=== PATIENT | male | born 1955 | race Caucasian/White ===

== ENCOUNTER 2016-07-13 13:12 | Inpatient (IN) | payer OTHER ==
[~2016-07-13] VITALS: Ht 162.6 cm; Wt 77.0 kg
[2016-07-13] MEDS ORDERED: IBUPROFEN 600 MG TAB PO ONE (15:30)
--- NOTE | 2016-07-13 16:12 | RADRPT ---
PROCEDURE: US DVT. CLINICAL INDICATION: Left lower extremity pain. TECHNIQUE: Multiple longitudinal and transverse images of the left lower extremity veins were obta ined with oshea scale and color Doppler imaging. 2D grayscale measurements with compression, color D oppler flow, and augmentation was performed. The calf veins were interrogated as well. COMPARISON: No prior studies are available for comparison. FINDINGS: The left common femoral, superficial femoral and popliteal veins are normally compressible throughou t. Color flow demonstrates normal filling of the vessel. Normal waveforms are visualized and there is normal response to augmentation. IMPRESSION: 1. No evidence of a deep vein thrombosis involving the left lower extremity. RPTAT: [facility] Physician Lina Date Time Electronically viewed and signed by Physician Lina on 07/13/2016 16:12 /
--- NOTE | 2016-07-13 16:37 | ERA ---
ER Documentation Chief Complaint Date/Time DATE: 07/13/16 TIME: 16:31 Chief Complaint on tx for left foot diabetic, no open wounds, slight swelling, no redness, HPI 61-year-old male with history of diabetes mellitus type 2 presents the ED, referred by Dr. Casanova, for evaluation of for a six-month history of worsening left foot pain and swelling. In December 2015 patient developed bruising his left foot followed by a cyst which was drained by podiatry. Since then he has had ongoing pain and swelling. MRI performed on 05/24/2016 very extensive osteomyelitis of the foot including extensive osteomyelitis of the first metatarsal and first proximal phalanx with associated bone fragmentation, septic arthritis and complex fluid decompressing into the adjacent soft tissues. Osteomyelitis of the second metatarsal head and second proximal phalanx with superimposed subchondral fracture of the second tarsal head. Osteomyelitis of the third proximal phalanx. Mild nonspecific marrow edema within the third and fourth metatarsal heads could reflect stress response or early osteomyelitis. Pain is exacerbated by weightbearing, no relieving factors. Otherwise asymptomatic. Denies chest pain, palpitations, shortness of breath, abdominal pain or nausea vomiting. No fevers or chills. ROS All systems reviewed and are negative except as per history of present illness. Medications Home Meds Reported Medications Metformin Hcl* (Metformin Hcl*) 1,000 Mg Tablet, 1000 MG PO WITH BREAKFAST DINNE , #60 TAB 07/13/16 Allergies Allergies: Coded Allergies: aspirin (Verified Allergy, Unknown, 07/13/16) PMhx/Soc Reviewed in chart. As per HPI Hx Neurological Disorder: No Hx Respiratory Disorders: No Hx Cardiac Disorders: No Hx Psychiatric Problems: No Hx Miscellaneous Medical Probl: Yes (DAIBETES ) Hx Alcohol Use: Yes Hx Substance Use: No Hx Tobacco Use: No Smoking Status: Never smoker FmHx Reviewed in chart. As per HPI. Not relevant to presenting up Physical Exam Vitals Vital Signs Date Time Temp Pulse Resp B/P Pulse Ox O2 Delivery O2 Flow Rate FiO2 07/13/16 13:19 97.9 92 18 123/82 99 Physical Exam Const: Alert, moderate distress due to pain Head: Atraumatic Eyes: Normal Conjunctiva ENT: Normal External Ears, Nose and Mouth. Neck: Full range of motion. Nontender. No lymphadenopathy. Resp: Clear to auscultation bilaterally Cardio: Regular rate and rhythm, no murmurs Abd: Soft, non tender, non distended. Normal bowel sounds Skin: No petechiae or rashes Back: No midline or flank tenderness Ext: Left lower extremity: Pretibial ulcerations. Left foot: Extensive swelling and tenderness but no subcutaneous crepitus. Neur: Awake and alert. No focal deficit observed. Psych: Normal Mood and Affect Result Diagram: 07/13/16 1705 07/13/16 1705 Results 24 hrs Current Medications Medications (Trade) Dose Ordered Sig/Joelle Route PRN Reason Start Time Stop Time Status Last Admin Dose Admin Ibuprofen (Motrin) 600 mg ONCE ONCE PO 07/13/16 15:30 07/13/16 15:31 DC 07/13/16 17:03 Procedures/MDM DOCUMENTS REVIEWED: ED nurse, no prior records MEDICAL DECISION MAKIN-year-old male with history of diabetes mellitus type 2 presents the ED, referred by Dr. Casanova, for evaluation of for a six- month history of worsening left foot pain and swelling. Patient with MRI proven osteomyelitis of the foot. Blood cultures 2 were ordered and initial dose of vancomycin and ertapenem ordered as per Dr. Casanova. Will require admission for intravenous antibiotics, infectious disease and podiatry consults. Counseled patient and family regarding diagnosis, diagnostic results and plan for admission. CALLS/CONSULTS: Time 16:00, Dr. Casanova, Recommends admission to med/surg. CALLS/CONSULTS: Time 16:35, Dr. Lowe, Recommends admission to med/surg. PATIENT CARE TRANSITIONED: Time: 16:40, Dr. Mercedes. Departure Diagnosis: Primary Impression: Foot pain Qualified Code: M79.672 - Left foot pain Additional Impressions: Osteomyelitis of left foot Qualified Code: M86.9 - Osteomyelitis of left foot, unspecified type Diabetes mellitus type 2 in nonobese Condition: Serious MARIELLA MOONEY MD Jul 13, 2016 16:37 Procedures/MDM DOCUMENTS REVIEWED: ED nurse, no prior records MEDICAL DECISION MAKIN-year-old male with history of diabetes mellitus type 2 presents the ED, referred by Dr. Casanova, for evaluation of for a six- month history of worsening left foot pain and swelling. Patient with MRI proven osteomyelitis of the foot. Blood cultures 2 were ordered and initial dose of vancomycin and ertapenem ordered as per Dr. Casanova. Will require admission for intravenous antibiotics, infectious disease and podiatry consults. Counseled patient and family regarding diagnosis, diagnostic results and plan for admission. CALLS/CONSULTS: Time 16:00, Dr. Casanova, Recommends admission to med/surg. CALLS/CONSULTS: Time 16:35, Dr. Lowe, Recommends admission to med/surg. PATIENT CARE TRANSITIONED: Time: 16:40, Dr. Mercedes. Departure Diagnosis: Primary Impression: Foot pain Qualified Code: M79.672 - Left foot pain Additional Impressions: Osteomyelitis of left foot Qualified Code: M86.9 - Osteomyelitis of left foot, unspecified type Diabetes mellitus type 2 in nonobese Condition: Serious MARIELLA MOONEY MD Jul 13, 2016 16:37
[2016-07-13] MEDS ORDERED: ONDANSETRON 4 MG INJ IV PRN (17:00)
[2016-07-13] MEDS ORDERED: VANCOMYCIN IV PER PHARMACY XX SCH (17:00)
[2016-07-13] MEDS ORDERED: MEROPENEM 1 GM/100 ML (PMX) 100 ML IVPB SCH (17:00)
[2016-07-13] MEDS ORDERED: ACETAMINOPHEN 325 MG TAB PO PRN ×2 (17:00→23:30)
[2016-07-13] MEDS ORDERED: MEROPENEM 1 GM/100 ML (PMX) 100 ML IVPB STA (17:09)
--- NOTE | 2016-07-13 17:29 | CONS ---
DATE OF ADMISSION: 07/13/2016 DATE OF CONSULTATION: 07/13/2016 TYPE OF CONSULTATION: Infectious Disease. REASON FOR CONSULTATION: Antibiotic management. HISTORY OF PRESENT ILLNESS: Valerie Godfrey is a pleasant unfortunate 61-year-old male who w as seen in my office on 07/12/2016 for osteomyelitis of his left foot. He was referred by Dr. Rustam Linares, car designer. PROBLEMS INCLUDE: 1. Adult-onset diabetes mellitus. 2. Osteomyelitis. The patient had removal of a cyst from his left foot in December 2015. while in [place]. He presents now with headache with a history of left foot pain since 01/02/2016. He began to have swelling of his left foot along with bruising of the foot with pain on the sole of the foot . An MRI of 05/14/2016 showed extensive osteomyelitis of the left foot involving the 1st metatarsal and first proximal phalanx with associated fragmentation and septic arthritis and complex fluid com pressing into the adjacent soft tissue. He had osteomyelitis of the second and third toes as well. He may have perineal and flexor tenosynovitis. PAST MEDICAL HISTORY: Operations none. SOCIAL HISTORY: He is , has no children. He does not smoke. He does not drink. He was pascual rn in [place] and moved here in 1984 to [place], no recent travel except to [place]. He does not work. ALLERGIES: HE HAS NO ALLERGIES. REVIEW OF SYSTEMS: Noncontributory. PHYSICAL EXAMINATION: GENERAL: The patient is a well-developed, well-nourished male, alert, responsive, oriented x3, speaking mostly Wol[place]. SKIN: Without generalized rash. HEENT: Within normal limits. NECK: Supple. LYMPH NODES: None palpable. CHEST: Decreased breath sounds at the bases. HEART: Without murmur or gallop. ABDOMEN: Soft, nontender, without organosplenomegaly or masses. EXTREMITIES: Left foot is swollen and tender. He has bruises on both of his anterior tibial areas. RECTAL AND GENITAL: Deferred. NEUROLOGIC: Decreased sensation in distal extremities. IMPRESSION AND PLAN: The patient was referred to the emergency room for total evaluation. He needs a podiatric evaluation. He may need drainage and debridement of his left foot as well as a PICC li ne placement with antibiotics with vancomycin and ertapenem. I have discussed the case with Dr. Rashaad frausto who wants the patient referred to the [facility] and I spoke to Dr. Otto Matos who was alberto lerner care of the patient in the ER. Dictated By: MIGUEL GÓMEZ MD, JD/MEGAN Conf#: [id number] DID#: [id number]
[2016-07-13] MEDS ORDERED: ERTAPENEM SODIUM 1 GM in SOD CHLORIDE 0.9% 100 ML IVPB ONE (17:30)
[2016-07-13] MEDS ORDERED: VANCOMYCIN 1.5 GM in SOD CHLORIDE 0.9% 250 ML IVPB ONE (17:30)
[2016-07-13] MEDS ORDERED: METF1000 PO (17:36)
--- NOTE | 2016-07-13 17:40 | RADRPT ---
PROCEDURE: XR Foot. CLINICAL INDICATION: left foot pain, swollen, r/o osteomyelitis TECHNIQUE: AP, lateral and oblique views of the left foot was obtained. The images were reviewed on a PACS workstation. COMPARISON: None. FINDINGS: There is erosion of the head of the second metatarsal as well as deformity of the base of the second proximal phalanx including osteophytes. There is also erosion of the head of the first metatarsal with hypertrophic deformity of the shaft of the first metatarsal. Deformity of the base of the firs t proximal phalanx is also noted. There is normal osseous mineralization. There are small inferior and posterior calcaneal spurs as w ell as dystrophic calcifications measuring together up to 2.5 cm projecting over the expected locati on of the plantar fascia. RPTAT: AA IMPRESSION: Erosive changes at the first and second metatarsal phalangeal joints are concerning for osteomyeliti s. Tiny inferior and posterior calcaneal spurs as well as calcifications likely in the proximal plantar fascia. Correlation for plantar fasciitis is recommended. Physician Gavino Date Time Electronically viewed and signed by Physician Gavino on 07/13/2016 17:40 RA/
[2016-07-13 17:44] LABS: ADD SCAN DIFF NO
[2016-07-13 17:45] LABS: BASOPHILS % 0.5 % (0.0-2.0); EOSINOPHILS # 0.4 10^3/ul (0.0-0.5); EOSINOPHILS % 6.6 % (0.0-7.0); HEMATOCRIT 39.2 % (42.0-52.0); HEMOGLOBIN 12.7 g/dl (14.0-18.0); LYMPHOCYTES # 2.7 10^3/ul (0.8-2.9); LYMPHOCYTES % 47.2 % (15.0-51.0); MEAN CORPUSCULAR HEMOGLOBIN 28.9 pg (29.0-33.0); MEAN CORPUSCULAR HGB CONC 32.4 g/dl (32.0-37.0); MEAN CORPUSCULAR VOLUME 89.3 fl (82.0-101.0); MEAN PLATELET VOLUME 10.9 fl (7.4-10.4); MONOCYTE # 0.4 10^3/ul (0.3-0.9); MONOCYTES % 7.1 % (0.0-11.0); NEUTROPHIL # 2.2 10^3/ul (1.6-7.5); NEUTROPHILS % 38.1 % (39.0-77.0); PLATELET COUNT 301 10^3/UL (140-415); RED BLOOD COUNT 4.39 10^6/ul (4.70-6.10); RED CELL DISTRIBUTION WIDTH 14.1 % (11.5-14.5); WHITE BLOOD COUNT 5.8 10^3/ul (4.8-10.8)
--- NOTE | 2016-07-13 17:45 | RADRPT ---
PROCEDURE: US Lower extremity arterial, bilateral CLINICAL INDICATION: Bilateral lower extremity rest pain with ulcers TECHNIQUE: Multiple sonographic images of the bilateral lower extremity arteries was obtained util izing grayscale, color-flow and doppler imaging. The images were reviewed on a PACS workstation. COMPARISON: None. FINDINGS: Calcifications are noted in the infrapopliteal arteries on the right. Velocities and waveforms were obtained as described below. RIGHT LEG: Right common femoral artery: 99 cm/s; triphasic waveforms Right profunda femoral artery: 77 cm/s; triphasic waveforms Right proximal superficial femoral artery: 83 cm/s; triphasic waveforms Right mid superficial femoral artery: 86 cm/s; triphasic waveforms Right distal superficial femoral artery: 81 cm/s; triphasic waveforms Right popliteal artery: 52 cm/s; triphasic waveforms Right posterior tibial artery: 92 cm/s; triphasic waveforms Right dorsalis pedis artery: 84 cm/s; biphasic waveforms Right LINETTE: 1.27 ( calcified ) LEFT LEG: Left common femoral artery: 114 cm/s; triphasic waveforms Left profunda femoral artery: 73 cm/s; triphasic waveforms Left proximal superficial femoral artery: 97 cm/s; triphasic waveforms Left mid superficial femoral artery: 123 cm/s; triphasic waveforms Left distal superficial femoral artery: 115 cm/s; triphasic waveforms Left popliteal artery: 87 cm/s; triphasic waveforms Left posterior tibial artery: 92 cm/s; monophasic waveforms Left dorsalis pedis artery: 119 cm/s; monophasic waveforms Left LINETTE: 1.27 ( calcified ) Diagnostic Criteria: 0 to 30%: Velocity: < 150 cm/sec Ratio: < 1.5 : 1 30 to 49%: Velocity: 150-200 cm/sec Ratio: 1.5:1 to 2:0 50 to 75%: Velocity: 200-400 cm/sec Ratio: 2:0 to 4:0 75 to 99%: Velocity: > 400 cm/sec Ratio: > 4.0 : 1 RPTAT: AA IMPRESSION: Calcifications are identified in the infrapopliteal vessels on the right greater than left which con tribute to elevated the systolic velocity in the left dorsalis pedis artery. No evidence of an occl usion or hemodynamically significant stenosis. Shawn Bonds Physician Date Time Electronically viewed and signed by Shawn Bonds Physician on 07/13/2016 17:44 RA/
[2016-07-13 18:00] LABS: INR 1.04; PROTIME 13.6 Sec (12.2-14.2); PT RATIO 1.1
[2016-07-13 18:01] LABS: PARTIAL THROMBOPLASTIN TIME 33.1 Sec (25.0-35.0)
[2016-07-13 18:07] LABS: ALBUMIN 4.8 g/dl (3.3-4.9); ALBUMIN/GLOBULIN RATIO 1.04; BILIRUBIN,INDIRECT 0.2 mg/dl (0-1.1); BILIRUBIN,TOTAL 0.2 mg/dl (0.2-1.3); C-REACTIVE PROTEIN 1.6 mg/dl (0.0-0.9); CALCIUM 9.5 mg/dl (8.4-10.2); CREATININE 0.72 mg/dl (0.61-1.24); TOTAL PROTEIN 9.4 g/dl (6.1-8.1)
[2016-07-13 22:54] VITALS: PULSE 58; TEMP 97.9
[2016-07-13 23:45] VITALS: Ht 162.6 cm; Wt 77.0 kg
[2016-07-13] MEDS ORDERED: GLUCOSE GEL 15 GRAM TUBE PO PRN ×2 (23:45)
[2016-07-13] MEDS ORDERED: GLUCOSE GEL 15 GRAM TUBE BUCCAL PRN (23:45)
[2016-07-13] MEDS ORDERED: DEXTROSE 50% 50 ML SYRINGE IV PRN ×2 (23:45)
[2016-07-13] MEDS ORDERED: GLUCAGON 1 MG INJ IM PRN (23:45)
[2016-07-14 00:30] VITALS: BP 139/80; RESP 18
[2016-07-14] MEDS: HYDROCODONE/APAP (5/325) TAB PO PRN ×2 (01:12→16:38)
--- NOTE | 2016-07-14 01:24 | HP ---
DATE OF ADMISSION: 07/13/2016 CHIEF COMPLAINT: Left foot pain and swelling. HISTORY OF PRESENT ILLNESS: The patient is a 61-year-old gentleman with a history of diabetes and w as seen by Dr. Casanova yesterday for possible osteomyelitis of left foot. The patient was referred b carlos enrique Linares, who had been seeing him from podiatry standpoint. The patient had resection of cyst f rom his left foot back in 12/2015 while he was in [place]. The patient subsequently had swelling of his left foot and pain, and MRI in 05/2016 showed extensive osteomyelitis of the left foot with poss ible septic arthritis and complex fluid compressing into the adjacent soft tissue. I am not sure wh at antibiotic he received prior to coming to the hospital since his MRI. The patient denies any vicki st pain, shortness of breath. No history of fever or chills. No history of numbness, tingling in a ny extremity. No history of cough, sore throat, headache, dizziness, syncope. No history of abdomi nal pain. No history of vomiting or diarrhea. No history of leg edema. REVIEW OF SYSTEMS: Rest of the review of systems was unremarkable. PAST SURGICAL HISTORY: None. SOCIAL HISTORY: No smoking, no alcohol. FAMILY HISTORY: Noncontributory. ALLERGIES: NONE. MEDICATIONS: The patient states that he was taking oral diabetic medication. Medication reconcilia tion indicated that he was on metformin, although he thinks he may have been on Amaryl. PHYSICAL EXAMINATION: GENERAL: The patient is conscious, awake, alert. VITAL SIGNS: Temperature 97.5, pulse 58, respirations 17, blood pressure 119/72, O2 saturation 100% on room air. HEENT: Conjunctivae, lids normal. Oropharynx clear. NECK: Supple. No mass, no thyromegaly. CHEST: Fairly clear. CARDIOVASCULAR: S1, S2 normal. No murmur, gallop, rub. ABDOMEN: Soft, nondistended, nontender. Bowel sounds plus. EXTREMITIES: No leg edema. The patient does have superficial ulceration, both legs anteriorly. Le ft foot is swollen, warm to touch and tender. However, the patient does have palpable pedal pulses. NEUROLOGIC: The patient is awake, alert with no gross focal deficit. IMPRESSION: 1. Left foot abscess with osteomyelitis. 2. Diabetes mellitus, out of control. The patient's blood sugar in ER was more than 300. However, his white count was only 5.8 with no left shift. Sedimentation rate came back as 38. CRP was 1.6. AST, ALT were within normal limits. PLAN: The patient admitted on medical floor. The patient will be started on IV vancomycin and erta penem and will also be given symptomatic treatment. Will start patient on Lantus and will put on mo derate scale insulin and will adjust insulin dose accordingly. Will obtain hemoglobin A1c and lipid panel. Dr. Casanova has already seen the patient from infectious disease standpoint. I spoke with Susi Gagnon from podiatry standpoint. Further recommendation will depend on patient's hospital cou rse. Dictated By: TIFFANY BERMAN/MEGAN Conf#: [id number] DID#: [id number]
[2016-07-14] MEDS ORDERED: ACCU-CHEK XX SCH (02:00)
[2016-07-14 05:37] LABS: CREATININE 0.66 mg/dl (0.61-1.24); POTASSIUM 3.7 mmol/L (3.5-5.1)
[2016-07-14 05:47] LABS: CHOL/HDL RATIO 5.3 RATIO
[2016-07-14 06:17] LABS: THYROID STIMULATING HORMONE 2.5 MIU/L (0.465-4.680)
[2016-07-14] MEDS ORDERED: VANCOMYCIN IV PER PHARMACY XX SCH (07:30)
[2016-07-14] MEDS ORDERED: VANCOMYCIN 750 MG in SOD CHLORIDE 0.9% 150 ML IVPB SCH (08:00)
[2016-07-14 08:10] VITALS: BP 123/79; RESP 18
[2016-07-14] MEDS: ENOXAPARIN 40 MG/0.4 ML SYG SC SCH (08:34)
[2016-07-14] MEDS: INSULIN GLARGINE [LANtus] 3 ML PEN SC SCH (08:36)
[2016-07-14] MEDS: INSULIN ASPART [NOVOLOG] 3 ML PEN SC SCH ×5 (08:36→20:43)
[2016-07-14] MEDS: VANCOMYCIN 1 GM in NS 250 ML IVPB SCH ×2 (08:45→20:43)
[2016-07-14] MEDS: ERTAPENEM SODIUM 1 GM in SOD CHLORIDE 0.9% 100 ML IVPB SCH (16:31)
--- NOTE | 2016-07-14 16:36 | PN ---
DATE: 07/14/2016 INFECTIOUS DISEASE PROGRESS NOTE SUBJECTIVE: No changes overnight. The patient is alert, feels good, looks comfortable. No fevers. No labs today. ANTIMICROBIALS: The patient is on: 1. Vancomycin. 2. Invanz. PHYSICAL EXAMINATION: GENERAL: Well-developed, middle-aged man, who is in no distress. HEENT: Head atraumatic, normocephalic. Sclerae anicteric. Buccal mucosa pink. NECK: Supple, trachea midline. CHEST: Chest rise is symmetrical. Breath sounds clear. HEART: S1, S2. ABDOMEN: Soft, bowel sounds present. EXTREMITIES: Without cyanosis. Left foot dressing intact. ASSESSMENT: 1. Left foot osteomyelitis. 2. Diabetes. PLAN: The patient remains stable, on appropriate antimicrobials, followed by podiatry. Possible de bridement. Will need to be on antibiotics for 6 weeks. Dictated By: BRENT LUCERO CHANGE NUMBER OPERATOR for MIGUEL BECERRIL/MEGAN Conf#: [id number] DID#: [id number]
--- NOTE | 2016-07-14 19:22 | PN ---
Date/Time of Note Date/Time of Note DATE: 07/14/16 TIME: 19:19 Assessment/Plan Lines/Catheters IV Catheter Type (from Nrsg): Saline Lock Assessment/Plan Assessment/Plan 1. Left foot abscess with osteomyelitis- No evidence of a deep vein thrombosis involving the left lower extremity. - per ID 2. Diabetes mellitus, out of control. - gLYCEMIC CONTROL Dw Dr Mercedes Exam/Review of Systems Vital Signs Vitals Vital Signs Date Time Temp Pulse Resp B/P Pulse Ox O2 Delivery O2 Flow Rate FiO2 07/14/16 08:10 97.6 55 18 123/79 99 07/13/16 22:54 Room Air Intake and Output 07/13/16 07/13/16 07/14/16 14:59 22:59 06:59 Intake Total 500 ml Output Total 400 ml Balance 100 ml Results Result Diagram: 07/13/16 1705 07/14/16 0430 Results 24 hrs Laboratory Tests Test 07/14/16 00:08 07/14/16 04:30 07/14/16 07:50 07/14/16 11:30 Bedside Glucose 176 195 267 H Sodium Level 142 Potassium Level 3.7 Chloride Level 106 Carbon Dioxide Level 29 Anion Gap 11 Blood Urea Nitrogen 13 Creatinine 0.66 Glucose Level 225 H Hemoglobin A1c 8.1 H Calcium Level 9.0 Triglycerides Level 164 H Cholesterol Level 197 LDL Cholesterol, Calculated 127 HDL Cholesterol 37 Cholesterol/HDL Ratio 5.3 Thyroid Stimulating Hormone (TSH) 2.500 Test 07/14/16 16:34 Bedside Glucose 118 Medications Medications Current Medications Ertapenem/Sodium Chloride (Invanz/NS) 100 ml @ 200 mls/hr Q24H IVPB Last administered on 07/14/16 16:31; Admin Dose 200 MLS/HR; Start 07/14/16 at 17:30 Acetaminophen (Tylenol Tab) 650 mg Q4H PRN PO PAIN AND OR ELEVATED TEMP; Start 07/13/16 at 23:30 Acetaminophen/ Hydrocodone Bitart ([place] (5/325)) 1 tab Q4H PRN PO PAIN LEVEL 4 -6 Last administered on 07/14/16 16:38; Admin Dose 1 TAB; Start 07/13/16 at 23:30 Insulin Glargine (Lantus) 15 unit DAILY@08 SC Last administered on 07/14/16 08: 36; Admin Dose 15 UNIT; Start 07/14/16 at 08:00 Enoxaparin Sodium (Lovenox) 40 mg DAILY SC Last administered on 07/14/16 08:34 ; Admin Dose 40 MG; Start 07/14/16 at 09:00 Miscellaneous Information 1 ea NOTE XX ; Start 07/13/16 at 23:45 Glucose (Glutose) 15 gm Q15M PRN PO DECREASED GLUCOSE; Start 07/13/16 at 23:45 Glucose (Glutose) 22.5 gm Q15M PRN PO DECREASED GLUCOSE; Start 07/13/16 at 23:45 Dextrose (D50w Syringe) 25 ml Q15M PRN IV DECREASED GLUCOSE; Start 07/13/16 at 23:45 Dextrose (D50w Syringe) 50 ml Q15M PRN IV DECREASED GLUCOSE; Start 07/13/16 at 23:45 Glucagon (Glucagen) 1 mg Q15M PRN IM DECREASED GLUCOSE; Start 07/13/16 at 23:45 Glucose (Glutose) 15 gm Q15M PRN BUCCAL DECREASED GLUCOSE; Start 07/13/16 at 23: 45 Vancomycin HCl PER PHARMACY DOSING NOTE XX ; Start 07/14/16 at 07:30 Vancomycin HCl (Vancocin) 250 ml @ 125 mls/hr Q12H IVPB Last administered on 08:45; Admin Dose 125 MLS/HR; Start 07/14/16 at 09:00 Diagnostic Test (Pha) (Accu-Chek) 1 ea 02 XX ; Start 07/15/16 at 02:00 CHELSEA PALACIOS Jul 14, 2016 19:22
[2016-07-14 19:55] VITALS: BP 125/83; RESP 19
[2016-07-15] MEDS: ACCU-CHEK XX SCH (01:22)
[2016-07-15 07:30] VITALS: BP 136/79; RESP 16
[2016-07-15] MEDS: INSULIN ASPART [NOVOLOG] 3 ML PEN SC SCH ×7 (08:00→20:53)
[2016-07-15] MEDS: INSULIN GLARGINE [LANtus] 3 ML PEN SC SCH (08:34)
[2016-07-15] MEDS: ENOXAPARIN 40 MG/0.4 ML SYG SC SCH (08:34)
[2016-07-15] MEDS: HYDROCODONE/APAP (5/325) TAB PO PRN (08:35)
[2016-07-15] MEDS: VANCOMYCIN 1 GM in NS 250 ML IVPB SCH ×2 (08:43→21:42)
[2016-07-15 10:48] LABS: ALBUMIN 4.2 g/dl (3.3-4.9); ALBUMIN/GLOBULIN RATIO 1.02; BILIRUBIN,INDIRECT 0.3 mg/dl (0-1.1); BILIRUBIN,TOTAL 0.3 mg/dl (0.2-1.3); CREATININE 0.7 mg/dl (0.61-1.24); TOTAL PROTEIN 8.3 g/dl (6.1-8.1)
[2016-07-15] MEDS ORDERED: LIDOCAINE 1% (MPF) 5 ML VIAL SC ONE ×2 (15:00)
--- NOTE | 2016-07-15 15:21 | CONS ---
Date/Time of Note Date/Time of Note DATE: 07/15/16 TIME: 15:20 Assessment/Plan Assessment/Plan Chief Complaint/Hosp Course SUBJECTIVE: No changes overnight. The patient is alert, feels good, looks comfortable. No fevers. ANTIMICROBIALS: The patient is on: 1. Vancomycin. 2. Invanz. PHYSICAL EXAMINATION: GENERAL: Well-developed, middle-aged man, who is in no distress. HEENT: Head atraumatic, normocephalic. Sclerae anicteric. Buccal mucosa pink. NECK: Supple, trachea midline. CHEST: Chest rise is symmetrical. Breath sounds clear. HEART: S1, S2. ABDOMEN: Soft, bowel sounds present. EXTREMITIES: Without cyanosis. Left foot dressing intact. ASSESSMENT: 1. Left foot osteomyelitis. 2. Diabetes. PLAN: The patient remains stable, on appropriate antimicrobials, followed by podiatry. Possible debridement. Will need to be on antibiotics for 6 weeks, consider PICC DW staff Problems: Consultation Date/Type/Reason Admit Date/Time Jul 13, 2016 at 16:56 Initial Consult Date Type of Consultation: ID Exam/Review of Systems Vital Signs Vitals Vital Signs Date Time Temp Pulse Resp B/P Pulse Ox O2 Delivery O2 Flow Rate FiO2 07/15/16 07:30 97.9 54 16 136/79 98 07/13/16 22:54 Room Air Intake and Output 07/14/16 07/14/16 07/15/16 15:00 23:00 07:00 Intake Total 250 ml 2450 ml 240 ml Output Total 1600 ml 1400 ml Balance 250 ml 850 ml -1160 ml Results Result Diagram: 07/13/16 1705 07/15/16 0914 Results 24 hrs Laboratory Tests Test 07/14/16 16:34 07/14/16 20:41 07/15/16 08:32 07/15/16 09:14 Bedside Glucose 118 125 126 Sodium Level 141 Potassium Level 4.0 Chloride Level 105 Carbon Dioxide Level 26 Anion Gap 14 Blood Urea Nitrogen 12 Creatinine 0.70 Glucose Level 212 Calcium Level 9.0 Total Bilirubin 0.3 Direct Bilirubin 0.00 Indirect Bilirubin 0.3 Aspartate Amino Transf (AST/SGOT) 26 # Alanine Aminotransferase (ALT/SGPT) 34 Alkaline Phosphatase 78 Total Protein 8.3 H Albumin 4.2 Globulin 4.10 H Albumin/Globulin Ratio 1.02 Test 07/15/16 11:58 Bedside Glucose 146 Medications Medications Current Medications Ertapenem/Sodium Chloride (Invanz/NS) 100 ml @ 200 mls/hr Q24H IVPB Last administered on 07/14/16 16:31; Admin Dose 200 MLS/HR; Start 07/14/16 at 17:30 Acetaminophen (Tylenol Tab) 650 mg Q4H PRN PO PAIN AND OR ELEVATED TEMP; Start 07/13/16 at 23:30 Acetaminophen/ Hydrocodone Bitart ([place] (5/325)) 1 tab Q4H PRN PO PAIN LEVEL 4 -6 Last administered on 07/15/16 08:35; Admin Dose 1 TAB; Start 07/13/16 at 23:30 Insulin Glargine (Lantus) 15 unit DAILY@08 SC Last administered on 07/15/16 08: 34; Admin Dose 15 UNIT; Start 07/14/16 at 08:00 Enoxaparin Sodium (Lovenox) 40 mg DAILY SC Last administered on 07/15/16 08:34 ; Admin Dose 40 MG; Start 07/14/16 at 09:00 Miscellaneous Information 1 ea NOTE XX ; Start 07/13/16 at 23:45 Glucose (Glutose) 15 gm Q15M PRN PO DECREASED GLUCOSE; Start 07/13/16 at 23:45 Glucose (Glutose) 22.5 gm Q15M PRN PO DECREASED GLUCOSE; Start 07/13/16 at 23:45 Dextrose (D50w Syringe) 25 ml Q15M PRN IV DECREASED GLUCOSE; Start 07/13/16 at 23:45 Dextrose (D50w Syringe) 50 ml Q15M PRN IV DECREASED GLUCOSE; Start 07/13/16 at 23:45 Glucagon (Glucagen) 1 mg Q15M PRN IM DECREASED GLUCOSE; Start 07/13/16 at 23:45 Glucose (Glutose) 15 gm Q15M PRN BUCCAL DECREASED GLUCOSE; Start 07/13/16 at 23: 45 Vancomycin HCl PER PHARMACY DOSING NOTE XX ; Start 07/14/16 at 07:30 Vancomycin HCl (Vancocin) 250 ml @ 125 mls/hr Q12H IVPB Last administered on 08:43; Admin Dose 125 MLS/HR; Start 07/14/16 at 09:00 Diagnostic Test (Pha) (Accu-Chek) 1 ea 02 XX ; Start 07/15/16 at 02:00 Miscellaneous Information (*Rx Drug Level Order Reminder*) VANCO TROUGH @ 2, 000 ON... ONCE ONCE XX ; Start 07/15/16 at 20:00; Stop 07/15/16 at 20:01 BRENT LUCERO NP Jul 15, 2016 15:21
[2016-07-15] MEDS: ERTAPENEM SODIUM 1 GM in SOD CHLORIDE 0.9% 100 ML IVPB SCH (16:31)
--- NOTE | 2016-07-15 18:01 | PN ---
Date/Time of Note Date/Time of Note DATE: 07/15/16 TIME: 17:58 Assessment/Plan VTE Prophylaxis VTE Prophylaxis Intervention: SCD's Lines/Catheters IV C[facility]ter Type (from [facility] Saline Lock Urinary Cath still in place: No Assessment/Plan Chief Complaint/Hosp Course Patient's pain is well controlled, hemodynamically stable, PICC line ordered for long-term antibiotics for osteomyelitis. Problems: Assessment/Plan - Left foot abscess with osteomyelitis. Dr. Casanova is following infection disease consultation. Continue antibiotics. Continue current wound care. 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 Linares patient's administrative receptionist. -Poorly controlled diabetes mellitus. Continue Lantus and NovoLog. Further recommendations based on clinical course. End of care discussed with Dr. Mercedes. Exam/Review of Systems Vital Signs Vitals Vital Signs Date Time Temp Pulse Resp B/P Pulse Ox O2 Delivery O2 Flow Rate FiO2 07/15/16 07:30 97.9 54 16 136/79 98 07/13/16 22:54 Room Air Intake and Output 07/14/16 07/14/16 07/15/16 15:00 23:00 07:00 Intake Total 250 ml 2450 ml 240 ml Output Total 1600 ml 1400 ml Balance 250 ml 850 ml -1160 ml Exam Constitutional: alert, well developed Head: normocephalic Neck: supple Respiratory: normal air movement Cardiovascular: nl pulses Gastrointestinal: non-tender, soft Extremities: normal pulses, other (Left lower extremity wound) Results Result Diagram: 07/13/16 1705 07/15/16 0914 Results 24 hrs Laboratory Tests Test 07/14/16 20:41 07/15/16 08:32 07/15/16 09:14 07/15/16 11:58 Bedside Glucose 125 126 146 Sodium Level 141 Potassium Level 4.0 Chloride Level 105 Carbon Dioxide Level 26 Anion Gap 14 Blood Urea Nitrogen 12 Creatinine 0.70 Glucose Level 212 Calcium Level 9.0 Total Bilirubin 0.3 Direct Bilirubin 0.00 Indirect Bilirubin 0.3 Aspartate Amino Transf (AST/SGOT) 26 # Alanine Aminotransferase (ALT/SGPT) 34 Alkaline Phosphatase 78 Total Protein 8.3 H Albumin 4.2 Globulin 4.10 H Albumin/Globulin Ratio 1.02 Test 07/15/16 16:30 Bedside Glucose 115 Medications Medications Current Medications Ertapenem/Sodium Chloride (Invanz/NS) 100 ml @ 200 mls/hr Q24H IVPB Last administered on 07/15/16 16:31; Admin Dose 200 MLS/HR; Start 07/14/16 at 17:30 Acetaminophen (Tylenol Tab) 650 mg Q4H PRN PO PAIN AND OR ELEVATED TEMP; Start 07/13/16 at 23:30 Acetaminophen/ Hydrocodone Bitart ([place] (5/325)) 1 tab Q4H PRN PO PAIN LEVEL 4 -6 Last administered on 07/15/16 08:35; Admin Dose 1 TAB; Start 07/13/16 at 23:30 Insulin Glargine (Lantus) 15 unit DAILY@08 SC Last administered on 07/15/16 08: 34; Admin Dose 15 UNIT; Start 07/14/16 at 08:00 Enoxaparin Sodium (Lovenox) 40 mg DAILY SC Last administered on 07/15/16 08:34 ; Admin Dose 40 MG; Start 07/14/16 at 09:00 Miscellaneous Information 1 ea NOTE XX ; Start 07/13/16 at 23:45 Glucose (Glutose) 15 gm Q15M PRN PO DECREASED GLUCOSE; Start 07/13/16 at 23:45 Glucose (Glutose) 22.5 gm Q15M PRN PO DECREASED GLUCOSE; Start 07/13/16 at 23:45 Dextrose (D50w Syringe) 25 ml Q15M PRN IV DECREASED GLUCOSE; Start 07/13/16 at 23:45 Dextrose (D50w Syringe) 50 ml Q15M PRN IV DECREASED GLUCOSE; Start 07/13/16 at 23:45 Glucagon (Glucagen) 1 mg Q15M PRN IM DECREASED GLUCOSE; Start 07/13/16 at 23:45 Glucose (Glutose) 15 gm Q15M PRN BUCCAL DECREASED GLUCOSE; Start 07/13/16 at 23: 45 Vancomycin HCl PER PHARMACY DOSING NOTE XX ; Start 07/14/16 at 07:30 Vancomycin HCl (Vancocin) 250 ml @ 125 mls/hr Q12H IVPB Last administered on 08:43; Admin Dose 125 MLS/HR; Start 07/14/16 at 09:00 Diagnostic Test (Pha) (Accu-Chek) 1 ea 02 XX ; Start 07/15/16 at 02:00 Miscellaneous Information (*Rx Drug Level Order Reminder*) VANCO TROUGH @ 2, 000 ON... ONCE ONCE XX ; Start 07/15/16 at 20:00; Stop 07/15/16 at 20:01 VICKY LENNON Jul 15, 2016 18:01
[2016-07-15 20:00] VITALS: BP 115/64; PULSE 71; RESP 18
[2016-07-15 22:07] VITALS: BP 159/88; RESP 20
[2016-07-16 00:34] VITALS: BP 130/77
[2016-07-16] MEDS: ACCU-CHEK XX SCH (02:00)
[2016-07-16 06:20] LABS: ADD SCAN DIFF NO
[2016-07-16 06:31] LABS: BASOPHILS % 0.5 % (0.0-2.0); EOSINOPHILS # 0.3 10^3/ul (0.0-0.5); EOSINOPHILS % 4.7 % (0.0-7.0); HEMATOCRIT 38.3 % (42.0-52.0); HEMOGLOBIN 12.6 g/dl (14.0-18.0); LYMPHOCYTES # 2.7 10^3/ul (0.8-2.9); LYMPHOCYTES % 48.9 % (15.0-51.0); MEAN CORPUSCULAR HEMOGLOBIN 29.2 pg (29.0-33.0); MEAN CORPUSCULAR HGB CONC 32.9 g/dl (32.0-37.0); MEAN CORPUSCULAR VOLUME 88.7 fl (82.0-101.0); MEAN PLATELET VOLUME 10.9 fl (7.4-10.4); MONOCYTE # 0.4 10^3/ul (0.3-0.9); MONOCYTES % 6.7 % (0.0-11.0); NEUTROPHIL # 2.1 10^3/ul (1.6-7.5); NEUTROPHILS % 38.8 % (39.0-77.0); PLATELET COUNT 303 10^3/UL (140-415); RED BLOOD COUNT 4.32 10^6/ul (4.70-6.10); RED CELL DISTRIBUTION WIDTH 13.9 % (11.5-14.5); WHITE BLOOD COUNT 5.5 10^3/ul (4.8-10.8)
[2016-07-16 07:20] LABS: CALCIUM 9.2 mg/dl (8.4-10.2); CREATININE 0.67 mg/dl (0.61-1.24); POTASSIUM 3.7 mmol/L (3.5-5.1)
[2016-07-16 07:25] VITALS: BP 129/82; RESP 16
[2016-07-16] MEDS: INSULIN ASPART [NOVOLOG] 3 ML PEN SC SCH ×7 (08:00→20:28)
[2016-07-16] MEDS: INSULIN GLARGINE [LANtus] 3 ML PEN SC SCH (08:37)
[2016-07-16] MEDS: ENOXAPARIN 40 MG/0.4 ML SYG SC SCH (08:38)
[2016-07-16] MEDS: VANCOMYCIN 1 GM in NS 250 ML IVPB SCH (08:39)
--- NOTE | 2016-07-16 12:55 | PN ---
Date/Time of Note Date/Time of Note DATE: 07/16/16 TIME: 12:55 Assessment/Plan VTE Prophylaxis VTE Prophylaxis Intervention: other Lines/Catheters IV Catheter Type (from [facility]): Saline Lock Urinary Cath still in place: No Assessment/Plan Chief Complaint/Hosp Course - Left foot abscess with osteomyelitis. Dr. Casanova is following infection disease consultation. Continue antibiotics. Continue current wound care. 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 -Poorly controlled diabetes mellitus. Continue Lantus and NovoLog. Problems: Subjective 24 Hr Interval Summary Free Text/Dictation Patient has leg pain Exam/Review of Systems Vital Signs Vitals Vital Signs Date Time Temp Pulse Resp B/P Pulse Ox O2 Delivery O2 Flow Rate FiO2 07/16/16 07:25 97.7 16 129/82 96 07/15/16 22:07 57 07/13/16 22:54 Room Air Intake and Output 07/15/16 07/15/16 07/16/16 15:00 23:00 07:00 Intake Total 250 ml 970 ml 790 ml Output Total 950 ml 1550 ml Balance 250 ml 20 ml -760 ml Exam Constitutional: well developed Head: atraumatic, normocephalic Neck: supple Respiratory: clear to auscultation Cardiovascular: regular rate and rhythm Gastrointestinal: non-tender, soft Extremities: normal pulses Results Result Diagram: 07/16/16 0530 07/16/16 0530 Results 24 hrs Laboratory Tests Test 07/15/16 16:30 07/15/16 20:15 07/15/16 20:52 07/16/16 05:30 Bedside Glucose 115 111 Vancomycin Level Trough 11.0 White Blood Count 5.5 Red Blood Count 4.32 L Hemoglobin 12.6 L Hematocrit 38.3 L Mean Corpuscular Volume 88.7 Mean Corpuscular Hemoglobin 29.2 Mean Corpuscular Hemoglobin Concent 32.9 Red Cell Distribution Width 13.9 Platelet Count 303 Mean Platelet Volume 10.9 H Neutrophils % 38.8 L Lymphocytes % 48.9 Monocytes % 6.7 Eosinophils % 4.7 Basophils % 0.5 Nucleated Red Blood Cells % 0.0 Neutrophils # 2.1 Lymphocytes # 2.7 Monocytes # 0.4 Eosinophils # 0.3 Basophils # 0.0 Nucleated Red Blood Cells # 0.0 Sodium Level 143 Potassium Level 3.7 Chloride Level 106 Carbon Dioxide Level 28 Anion Gap 13 Blood Urea Nitrogen 15 Creatinine 0.67 Glucose Level 105 # Calcium Level 9.2 Test 07/16/16 08:28 07/16/16 12:14 Bedside Glucose 106 138 Medications Medications Current Medications Ertapenem/Sodium Chloride (Invanz/NS) 100 ml @ 200 mls/hr Q24H IVPB Last administered on 07/15/16 16:31; Admin Dose 200 MLS/HR; Start 07/14/16 at 17:30 Acetaminophen (Tylenol Tab) 650 mg Q4H PRN PO PAIN AND OR ELEVATED TEMP; Start 07/13/16 at 23:30 Acetaminophen/ Hydrocodone Bitart ([place] (5/325)) 1 tab Q4H PRN PO PAIN LEVEL 4 -6 Last administered on 07/15/16 08:35; Admin Dose 1 TAB; Start 07/13/16 at 23:30 Insulin Glargine (Lantus) 15 unit DAILY@08 SC Last administered on 07/16/16 08 :37; Admin Dose 15 UNIT; Start 07/14/16 at 08:00 Enoxaparin Sodium (Lovenox) 40 mg DAILY SC Last administered on 07/16/16 08:38 ; Admin Dose 40 MG; Start 07/14/16 at 09:00 Miscellaneous Information 1 ea NOTE XX ; Start 07/13/16 at 23:45 Glucose (Glutose) 15 gm Q15M PRN PO DECREASED GLUCOSE; Start 07/13/16 at 23:45 Glucose (Glutose) 22.5 gm Q15M PRN PO DECREASED GLUCOSE; Start 07/13/16 at 23:45 Dextrose (D50w Syringe) 25 ml Q15M PRN IV DECREASED GLUCOSE; Start 07/13/16 at 23:45 Dextrose (D50w Syringe) 50 ml Q15M PRN IV DECREASED GLUCOSE; Start 07/13/16 at 23:45 Glucagon (Glucagen) 1 mg Q15M PRN IM DECREASED GLUCOSE; Start 07/13/16 at 23:45 Glucose (Glutose) 15 gm Q15M PRN BUCCAL DECREASED GLUCOSE; Start 07/13/16 at 23: 45 Vancomycin HCl (Vanco Iv Per Pharmacy) PER PHARMACY DOSING NOTE XX ; Start at 07:30 Diagnostic Test (Pha) 1 ea 1 ea 02 XX ; Start 07/15/16 at 02:00 Vancomycin HCl/ Sodium Chloride (Vancocin/NS) 250 ml @ 83.333 mls/ hr Q12H IVPB ; Start 07/16/16 at 21:00 DAVIS SINGLETARY Jul 16, 2016 12:55
[2016-07-16] MEDS: ERTAPENEM SODIUM 1 GM in SOD CHLORIDE 0.9% 100 ML IVPB SCH (17:21)
--- NOTE | 2016-07-16 19:11 | CONS ---
Date/Time of Note Date/Time of Note DATE: 07/16/16 TIME: 19:11 Assessment/Plan Assessment/Plan Chief Complaint/Hosp Course SUBJECTIVE: No changes overnight. The patient is alert, feels good, looks comfortable. No fevers. ANTIMICROBIALS: The patient is on: 1. Vancomycin. 2. Invanz. PHYSICAL EXAMINATION: GENERAL: Well-developed, middle-aged man, who is in no distress. HEENT: Head atraumatic, normocephalic. Sclerae anicteric. Buccal mucosa pink. NECK: Supple, trachea midline. CHEST: Chest rise is symmetrical. Breath sounds clear. HEART: S1, S2. ABDOMEN: Soft, bowel sounds present. EXTREMITIES: Without cyanosis. Left foot dressing intact. ASSESSMENT: 1. Left foot osteomyelitis. 2. Diabetes. PLAN: The patient remains stable, on appropriate antimicrobials, followed by podiatry. Possible debridement. Will need to be on antibiotics for 6 weeks, pending PICC [facility] staff Problems: Consultation Date/Type/Reason Admit Date/Time Jul 13, 2016 at 16:56 Type of Consultation: ID Exam/Review of Systems Vital Signs Vitals Vital Signs Date Time Temp Pulse Resp B/P Pulse Ox O2 Delivery O2 Flow Rate FiO2 07/16/16 07:25 97.7 16 129/82 96 07/15/16 22:07 57 07/13/16 22:54 Room Air Intake and Output 07/15/16 07/15/16 07/16/16 15:00 23:00 07:00 Intake Total 250 ml 970 ml 790 ml Output Total 950 ml 1550 ml Balance 250 ml 20 ml -760 ml Results Result Diagram: 07/16/16 0530 07/16/16 0530 Results 24 hrs Laboratory Tests Test 07/15/16 20:15 07/15/16 20:52 07/16/16 05:30 07/16/16 08:28 Vancomycin Level Trough 11.0 Bedside Glucose 111 106 White Blood Count 5.5 Red Blood Count 4.32 L Hemoglobin 12.6 L Hematocrit 38.3 L Mean Corpuscular Volume 88.7 Mean Corpuscular Hemoglobin 29.2 Mean Corpuscular Hemoglobin Concent 32.9 Red Cell Distribution Width 13.9 Platelet Count 303 Mean Platelet Volume 10.9 H Neutrophils % 38.8 L Lymphocytes % 48.9 Monocytes % 6.7 Eosinophils % 4.7 Basophils % 0.5 Nucleated Red Blood Cells % 0.0 Neutrophils # 2.1 Lymphocytes # 2.7 Monocytes # 0.4 Eosinophils # 0.3 Basophils # 0.0 Nucleated Red Blood Cells # 0.0 Sodium Level 143 Potassium Level 3.7 Chloride Level 106 Carbon Dioxide Level 28 Anion Gap 13 Blood Urea Nitrogen 15 Creatinine 0.67 Glucose Level 105 # Calcium Level 9.2 Test 07/16/16 12:14 07/16/16 17:20 Bedside Glucose 138 91 Medications Medications Current Medications Ertapenem/Sodium Chloride (Invanz/NS) 100 ml @ 200 mls/hr Q24H IVPB Last administered on 07/16/16 17:21; Admin Dose 200 MLS/HR; Start 07/14/16 at 17:30 Acetaminophen (Tylenol Tab) 650 mg Q4H PRN PO PAIN AND OR ELEVATED TEMP; Start 07/13/16 at 23:30 Acetaminophen/ Hydrocodone Bitart ([place] (5/325)) 1 tab Q4H PRN PO PAIN LEVEL 4 -6 Last administered on 07/15/16 08:35; Admin Dose 1 TAB; Start 07/13/16 at 23:30 Insulin Glargine (Lantus) 15 unit DAILY@08 SC Last administered on 07/16/16 08 :37; Admin Dose 15 UNIT; Start 07/14/16 at 08:00 Enoxaparin Sodium (Lovenox) 40 mg DAILY SC Last administered on 07/16/16 08:38 ; Admin Dose 40 MG; Start 07/14/16 at 09:00 Miscellaneous Information 1 ea NOTE XX ; Start 07/13/16 at 23:45 Glucose (Glutose) 15 gm Q15M PRN PO DECREASED GLUCOSE; Start 07/13/16 at 23:45 Glucose (Glutose) 22.5 gm Q15M PRN PO DECREASED GLUCOSE; Start 07/13/16 at 23:45 Dextrose (D50w Syringe) 25 ml Q15M PRN IV DECREASED GLUCOSE; Start 07/13/16 at 23:45 Dextrose (D50w Syringe) 50 ml Q15M PRN IV DECREASED GLUCOSE; Start 07/13/16 at 23:45 Glucagon (Glucagen) 1 mg Q15M PRN IM DECREASED GLUCOSE; Start 07/13/16 at 23:45 Glucose (Glutose) 15 gm Q15M PRN BUCCAL DECREASED GLUCOSE; Start 07/13/16 at 23: 45 Vancomycin HCl (Vanco Iv Per Pharmacy) PER PHARMACY DOSING NOTE XX ; Start at 07:30 Diagnostic Test (Pha) 1 ea 1 ea 02 XX ; Start 07/15/16 at 02:00 Vancomycin HCl/ Sodium Chloride (Vancocin/NS) 250 ml @ 83.333 mls/ hr Q12H IVPB ; Start 07/16/16 at 21:00 Docusate Sodium (Colace) 100 mg BID PO ; Start 07/16/16 at 21:00 BRENT LUCERO NP Jul 16, 2016 19:11
[2016-07-16] MEDS: DOCUSATE SODIUM 100 MG CAP PO SCH (20:31)
[2016-07-16] MEDS: VANCOMYCIN 1.25 GM in SOD CHLORIDE 0.9% 250 ML IVPB SCH (20:31)
[2016-07-16 21:34] VITALS: BP 136/84; RESP 20
[2016-07-17] MEDS: ACCU-CHEK XX SCH (01:15)
[2016-07-17] MEDS: INSULIN ASPART [NOVOLOG] 3 ML PEN SC SCH ×7 (07:57→21:26)
[2016-07-17] MEDS: INSULIN GLARGINE [LANtus] 3 ML PEN SC SCH (07:58)
[2016-07-17 08:20] VITALS: BP 125/88; RESP 18
[2016-07-17] MEDS: DOCUSATE SODIUM 100 MG CAP PO SCH ×2 (09:03→21:20)
[2016-07-17] MEDS: VANCOMYCIN 1.25 GM in SOD CHLORIDE 0.9% 250 ML IVPB SCH ×2 (09:03→21:20)
[2016-07-17] MEDS: ENOXAPARIN 40 MG/0.4 ML SYG SC SCH (09:07)
--- NOTE | 2016-07-17 12:04 | PN ---
Date/Time of Note Date/Time of Note DATE: 07/17/16 TIME: 12:03 Assessment/Plan VTE Prophylaxis VTE Prophylaxis Intervention: other Lines/Catheters [facility] Saline Lock Urinary Cath still in place: No Assessment/Plan Chief Complaint/Hosp Course - Left foot abscess with osteomyelitis. Dr. Casanova is following infection disease consultation. Continue antibiotics. Continue current wound care. 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 -Poorly controlled diabetes mellitus. Continue Lantus and NovoLog. Problems: Subjective 24 Hr Interval Summary Free Text/Dictation Patient still has some pain Exam/Review of Systems Vital Signs Vitals Vital Signs Date Time Temp Pulse Resp B/P Pulse Ox O2 Delivery O2 Flow Rate FiO2 07/17/16 08:20 97.9 61 18 125/88 98 07/13/16 22:54 Room Air Intake and Output 07/16/16 07/16/16 07/17/16 15:00 23:00 07:00 Intake Total 1110 ml 830 ml Output Total 1250 ml 1000 ml Balance -140 ml -170 ml Exam Constitutional: well developed Head: atraumatic, normocephalic Neck: supple Respiratory: clear to auscultation Cardiovascular: regular rate and rhythm Gastrointestinal: non-tender, soft Extremities: normal pulses Results Result Diagram: 07/16/16 0530 07/16/16 0530 Results 24 hrs Laboratory Tests Test 07/16/16 12:14 07/16/16 17:20 07/16/16 20:28 07/17/16 07:55 Bedside Glucose 138 91 114 114 Medications Medications Current Medications Ertapenem/Sodium Chloride (Invanz/NS) 100 ml @ 200 mls/hr Q24H IVPB Last administered on 07/16/16 17:21; Admin Dose 200 MLS/HR; Start 07/14/16 at 17:30 Acetaminophen (Tylenol Tab) 650 mg Q4H PRN PO PAIN AND OR ELEVATED TEMP; Start 07/13/16 at 23:30 Acetaminophen/ Hydrocodone Bitart ([place] (5/325)) 1 tab Q4H PRN PO PAIN LEVEL 4 -6 Last administered on 07/15/16 08:35; Admin Dose 1 TAB; Start 07/13/16 at 23:30 Insulin Glargine (Lantus) 15 unit DAILY@08 SC Last administered on 07/17/16 07 :58; Admin Dose 15 UNIT; Start 07/14/16 at 08:00 Enoxaparin Sodium (Lovenox) 40 mg DAILY SC Last administered on 07/17/16 09:07 ; Admin Dose 40 MG; Start 07/14/16 at 09:00 Miscellaneous Information 1 ea NOTE XX ; Start 07/13/16 at 23:45 Glucose (Glutose) 15 gm Q15M PRN PO DECREASED GLUCOSE; Start 07/13/16 at 23:45 Glucose (Glutose) 22.5 gm Q15M PRN PO DECREASED GLUCOSE; Start 07/13/16 at 23:45 Dextrose (D50w Syringe) 25 ml Q15M PRN IV DECREASED GLUCOSE; Start 07/13/16 at 23:45 Dextrose (D50w Syringe) 50 ml Q15M PRN IV DECREASED GLUCOSE; Start 07/13/16 at 23:45 Glucagon (Glucagen) 1 mg Q15M PRN IM DECREASED GLUCOSE; Start 07/13/16 at 23:45 Glucose (Glutose) 15 gm Q15M PRN BUCCAL DECREASED GLUCOSE; Start 07/13/16 at 23: 45 Vancomycin HCl (Vanco Iv Per Pharmacy) PER PHARMACY DOSING NOTE XX ; Start at 07:30 Diagnostic Test (Pha) 1 ea 1 ea 02 XX ; Start 07/15/16 at 02:00 Vancomycin HCl/ Sodium Chloride (Vancocin/NS) 250 ml @ 83.333 mls/ hr Q12H IVPB Last administered on 07/17/16 09:03; Admin Dose 83.333 MLS/HR; Start 11/22 at 21:00 Docusate Sodium (Colace) 100 mg BID PO Last administered on 07/17/16 09:03; Admin Dose 100 MG; Start 07/16/16 at 21:00 Miscellaneous Information (*Rx Drug Level Order Reminder*) VANCOMYCIN TROUGH AT 0800 ONCE ONCE XX ; Start 07/18/16 at 08:00; Stop 07/18/16 at 08:01 DAVIS SINGLETARY Jul 17, 2016 12:04
--- NOTE | 2016-07-17 13:06 | RADRPT ---
PROCEDURE: XR Chest. CLINICAL INDICATION: Respiratory distress. Left PICC line placement. TECHNIQUE: AP view of the chest was performed. COMPARISON: None FINDINGS: There is a left PICC line in good positioning in the superior vena cava and ready for use. Mild cardiomegaly is present with decreased lung volumes and bibasilar atelectasis. No acute infilt rate or findings of fluid overload. No pneumothorax or pleural effusion. The osseous structures ar e unremarkable. IMPRESSION: Left PICC line in good positioning and ready for use. Mild cardiomegaly, decreased lung volumes, an d bibasilar atelectasis. No no findings of fluid overload. RPTAT: QQ. .Licha Mark MD, MD Date Time Electronically viewed and signed by .Licha Mark MD, on 07/17/2016 13:06 .F/
[2016-07-17] MEDS: HYDROCODONE/APAP (5/325) TAB PO PRN (13:49)
--- NOTE | 2016-07-17 14:02 | RADRPT ---
PROCEDURE: US guidance for PICC line CLINICAL INDICATION: PICC line placement TECHNIQUE: Multiple real-time images were acquired of the patient's arm utilizing a high resolutio n transducer. This was performed by the PICC line nurse for venous access. COMPARISON: None FINDINGS: Ultrasound guidance for PICC line placement. IMPRESSION: Ultrasound guidance for PICC line placement. RPTAT: AA .Marquis Cadet MD, MD Date Time Electronically viewed and signed by .Marquis Cadet MD, on 07/17/2016 14:01 .S/
[2016-07-17] MEDS ORDERED: HEPARIN (10 UNITS/ML) 5ML SYG IV ONE (15:30)
[2016-07-17] MEDS: ERTAPENEM SODIUM 1 GM in SOD CHLORIDE 0.9% 100 ML IVPB SCH (17:40)
--- NOTE | 2016-07-17 19:41 | CONS ---
Date/Time of Note Date/Time of Note DATE: 07/17/16 TIME: 19:40 Assessment/Plan Assessment/Plan Chief Complaint/Hosp Course SUBJECTIVE: No changes overnight. The patient is alert, looks comfortable. No fevers. ANTIMICROBIALS: 1. Vancomycin. 2. Invanz. PHYSICAL EXAMINATION: GENERAL: Well-developed, middle-aged man, who is in no distress. HEENT: Head atraumatic, normocephalic. Sclerae anicteric. Buccal mucosa pink. NECK: Supple, trachea midline. CHEST: Chest rise is symmetrical. Breath sounds clear. HEART: S1, S2. ABDOMEN: Soft, bowel sounds present. EXTREMITIES: Without cyanosis. Left foot dressing intact. ASSESSMENT: 1. Left foot osteomyelitis. 2. Diabetes. PLAN: The patient remains stable, s/p PICC, continue abs for 6-8 weeks, f/u podiatry rec-s [facility] staff Problems: Consultation Date/Type/Reason Admit Date/Time Jul 13, 2016 at 16:56 Type of Consultation: ID Exam/Review of Systems Vital Signs Vitals Vital Signs Date Time Temp Pulse Resp B/P Pulse Ox O2 Delivery O2 Flow Rate FiO2 07/17/16 08:20 97.9 61 18 125/88 98 07/13/16 22:54 Room Air Intake and Output 07/16/16 07/16/16 07/17/16 15:00 23:00 07:00 Intake Total 1110 ml 830 ml Output Total 1250 ml 1000 ml Balance -140 ml -170 ml Results Result Diagram: 07/16/16 0530 07/16/16 0530 Results 24 hrs Laboratory Tests Test 07/16/16 20:28 07/17/16 07:55 07/17/16 13:34 07/17/16 17:16 Bedside Glucose 114 114 151 185 Medications Medications Current Medications Ertapenem/Sodium Chloride (Invanz/NS) 100 ml @ 200 mls/hr Q24H IVPB Last administered on 07/17/16t 17:40; Admin Dose 200 MLS/HR; Start 07/14/16 at 17:30 Acetaminophen (Tylenol Tab) 650 mg Q4H PRN PO PAIN AND OR ELEVATED TEMP; Start 07/13/16 at 23:30 Acetaminophen/ Hydrocodone Bitart ([place] (5/325)) 1 tab Q4H PRN PO PAIN LEVEL 4 -6 Last administered on 07/17/16 13:49; Admin Dose 1 TAB; Start 07/13/16 at 23: 30 Insulin Glargine (Lantus) 15 unit DAILY@08 SC Last administered on 07/17/16 07 :58; Admin Dose 15 UNIT; Start 07/14/16 at 08:00 Enoxaparin Sodium (Lovenox) 40 mg DAILY SC Last administered on 07/17/16 09:07 ; Admin Dose 40 MG; Start 07/14/16 at 09:00 Miscellaneous Information 1 ea NOTE XX ; Start 07/13/16 at 23:45 Glucose (Glutose) 15 gm Q15M PRN PO DECREASED GLUCOSE; Start 07/13/16 at 23:45 Glucose (Glutose) 22.5 gm Q15M PRN PO DECREASED GLUCOSE; Start 07/13/16 at 23:45 Dextrose (D50w Syringe) 25 ml Q15M PRN IV DECREASED GLUCOSE; Start 07/13/16 at 23:45 Dextrose (D50w Syringe) 50 ml Q15M PRN IV DECREASED GLUCOSE; Start 07/13/16 at 23:45 Glucagon (Glucagen) 1 mg Q15M PRN IM DECREASED GLUCOSE; Start 07/13/16 at 23:45 Glucose (Glutose) 15 gm Q15M PRN BUCCAL DECREASED GLUCOSE; Start 07/13/16 at 23: 45 Vancomycin HCl (Vanco Iv Per Pharmacy) PER PHARMACY DOSING NOTE XX ; Start at 07:30 Diagnostic Test (Pha) 1 ea 1 ea 02 XX ; Start 07/15/16 at 02:00 Vancomycin HCl/ Sodium Chloride (Vancocin/NS) 250 ml @ 83.333 mls/ hr Q12H IVPB Last administered on 07/17/16 09:03; Admin Dose 83.333 MLS/HR; Start 11/22 at 21:00 Docusate Sodium (Colace) 100 mg BID PO Last administered on 07/17/16 09:03; Admin Dose 100 MG; Start 07/16/16 at 21:00 Miscellaneous Information (*Rx Drug Level Order Reminder*) VANCOMYCIN TROUGH AT 0800 ONCE ONCE XX ; Start 07/18/16 at 08:00; Stop 07/18/16 at 08:01 BRENT LUCERO NP Jul 17, 2016 19:41
[2016-07-17 21:03] VITALS: BP 128/86; RESP 20
[2016-07-18] MEDS: ACCU-CHEK XX SCH (02:00)
[2016-07-18 07:53] VITALS: BP 126/91; RESP 18
[2016-07-18] MEDS: INSULIN ASPART [NOVOLOG] 3 ML PEN SC SCH ×7 (08:19→20:13)
[2016-07-18] MEDS: INSULIN GLARGINE [LANtus] 3 ML PEN SC SCH (08:20)
[2016-07-18] MEDS: ENOXAPARIN 40 MG/0.4 ML SYG SC SCH (08:21)
[2016-07-18] MEDS: DOCUSATE SODIUM 100 MG CAP PO SCH ×2 (08:22→20:14)
[2016-07-18] MEDS: VANCOMYCIN 1.25 GM in SOD CHLORIDE 0.9% 250 ML IVPB SCH (09:46)
--- NOTE | 2016-07-18 14:24 | CONS ---
Date/Time of Note Date/Time of Note DATE: 07/18/16 TIME: 14:23 Assessment/Plan Assessment/Plan Chief Complaint/Hosp Course SUBJECTIVE: No changes overnight. The patient is alert, looks comfortable. No fevers. ANTIMICROBIALS: 1. Vancomycin. 2. Invanz. PHYSICAL EXAMINATION: GENERAL: Well-developed, middle-aged man, who is in no distress. HEENT: Head atraumatic, normocephalic. Sclerae anicteric. Buccal mucosa pink. NECK: Supple, trachea midline. CHEST: Chest rise is symmetrical. Breath sounds clear. HEART: S1, S2. ABDOMEN: Soft, bowel sounds present. EXTREMITIES: Without cyanosis. Left foot dressing intact. ASSESSMENT: 1. Left foot osteomyelitis. 2. Diabetes. PLAN: The patient remains stable, s/p PICC, continue abs for 6-8 weeks, f/u podiatry rec-s [facility] staff Problems: Consultation Date/Type/Reason Admit Date/Time Jul 13, 2016 at 16:56 Type of Consultation: ID Exam/Review of Systems Vital Signs Vitals Vital Signs Date Time Temp Pulse Resp B/P Pulse Ox O2 Delivery O2 Flow Rate FiO2 07/18/16 07:53 98.4 64 18 126/91 98 Intake and Output 07/17/16 07/17/16 07/18/16 15:00 23:00 07:00 Intake Total 250 ml 1200 ml 850 ml Output Total 1200 ml 1800 ml Balance 250 ml 0 ml -950 ml Results Result Diagram: 07/16/16 0530 07/16/16 0530 Results 24 hrs Laboratory Tests Test 07/17/16 17:16 07/17/16 21:18 07/18/16 02:15 07/18/16 07:55 Bedside Glucose 185 185 186 165 Test 07/18/16 07:57 07/18/16 08:13 07/18/16 12:09 Bedside Glucose 156 130 Vancomycin Level Trough 12.3 Medications Medications Current Medications Ertapenem/Sodium Chloride (Invanz/NS) 100 ml @ 200 mls/hr Q24H IVPB Last administered on 07/17/16 17:40; Admin Dose 200 MLS/HR; Start 07/14/16 at 17:30 Acetaminophen (Tylenol Tab) 650 mg Q4H PRN PO PAIN AND OR ELEVATED TEMP Last administered on 07/18/16 08:22; Admin Dose 650 MG; Start 07/13/16 at 23:30 Acetaminophen/ Hydrocodone Bitart ([place] (5/325)) 1 tab Q4H PRN PO PAIN LEVEL 4 -6 Last administered on 07/17/16 13:49; Admin Dose 1 TAB; Start 07/13/16 at 23: 30 Insulin Glargine (Lantus) 15 unit DAILY@08 SC Last administered on 07/18/16 08 :20; Admin Dose 15 UNIT; Start 07/14/16 at 08:00 Enoxaparin Sodium (Lovenox) 40 mg DAILY SC Last administered on 07/18/16 08:21 ; Admin Dose 40 MG; Start 07/14/16 at 09:00 Miscellaneous Information 1 ea NOTE XX ; Start 07/13/16 at 23:45 Glucose (Glutose) 15 gm Q15M PRN PO DECREASED GLUCOSE; Start 07/13/16 at 23:45 Glucose (Glutose) 22.5 gm Q15M PRN PO DECREASED GLUCOSE; Start 07/13/16 at 23:45 Dextrose (D50w Syringe) 25 ml Q15M PRN IV DECREASED GLUCOSE; Start 07/13/16 at 23:45 Dextrose (D50w Syringe) 50 ml Q15M PRN IV DECREASED GLUCOSE; Start 07/13/16 at 23:45 Glucagon (Glucagen) 1 mg Q15M PRN IM DECREASED GLUCOSE; Start 07/13/16 at 23:45 Glucose (Glutose) 15 gm Q15M PRN BUCCAL DECREASED GLUCOSE; Start 07/13/16 at 23: 45 Vancomycin HCl (Vanco Iv Per Pharmacy) PER PHARMACY DOSING NOTE XX ; Start at 07:30 Diagnostic Test (Pha) (Accu-Chek) 1 ea 02 XX ; Start 07/15/16 at 02:00 Docusate Sodium 100 mg 100 mg BID PO Last administered on 07/18/16 08:22; Admin Dose 100 MG; Start 07/16/16 at 21:00 Vancomycin HCl/ Sodium Chloride (Vancocin/NS) 250 ml @ 83.333 mls/ hr Q12H IVPB ; Start 07/18/16 at 21:00 BRENT LUCERO NP Jul 18, 2016 14:24
--- NOTE | 2016-07-18 16:46 | PN ---
Date/Time of Note Date/Time of Note DATE: 07/18/16 TIME: 16:43 Assessment/Plan VTE Prophylaxis VTE Prophylaxis Intervention: SCD's Lines/Catheters IV Catheter Type (from Nrs): PICC Line Central line still needed: Yes Urinary Cath still in place: No Assessment/Plan Chief Complaint/Hosp Course Patient's complaint of left lower extremity pain controlled with current medication. Assessment/Plan - Left foot abscess with osteomyelitis. Dr. Casanova is following infection disease consultation. Patient is currently on vancomycin and meropenem. continue current wound care. 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 -Poorly controlled diabetes mellitus. Continue Lantus and NovoLog. Patient with left upper extremity PICC line. Will check BMP and CBC tomorrow, if stable anticipate discharge to residential facility for completion of antibiotics for osteomyelitis for 6 more weeks. Plan of care discussed with case management. Further recommendations based on clinical course. End of care discussed with Dr. Mercedes. Problems: Exam/Review of Systems Vital Signs Vitals Vital Signs Date Time Temp Pulse Resp B/P Pulse Ox O2 Delivery O2 Flow Rate FiO2 07/18/16 07:53 98.4 64 18 126/91 98 Intake and Output 07/17/16 07/17/16 07/18/16 15:00 23:00 07:00 Intake Total 250 ml 1200 ml 850 ml Output Total 1200 ml 1800 ml Balance 250 ml 0 ml -950 ml Exam Constitutional: alert, well developed Head: normocephalic Neck: supple Respiratory: normal air movement Cardiovascular: nl pulses Gastrointestinal: non-tender, soft Extremities: normal pulses, other (Left lower extremity wound) Results Result Diagram: 07/16/16 0530 07/16/16 0530 Results 24 hrs Laboratory Tests Test 07/17/16 17:16 07/17/16 21:18 07/18/16 02:15 07/18/16 07:55 Bedside Glucose 185 185 186 165 Test 07/18/16 07:57 07/18/16 08:13 07/18/16 12:09 Bedside Glucose 156 130 Vancomycin Level Trough 12.3 Medications Medications Current Medications Ertapenem/Sodium Chloride (Invanz/NS) 100 ml @ 200 mls/hr Q24H IVPB Last administered on 07/17/16t 17:40; Admin Dose 200 MLS/HR; Start 07/14/16 at 17:30 Acetaminophen (Tylenol Tab) 650 mg Q4H PRN PO PAIN AND OR ELEVATED TEMP Last administered on 07/18/16 08:22; Admin Dose 650 MG; Start 07/13/16 at 23:30 Acetaminophen/ Hydrocodone Bitart ([place] (5/325)) 1 tab Q4H PRN PO PAIN LEVEL 4 -6 Last administered on 07/17/16 13:49; Admin Dose 1 TAB; Start 07/13/16 at 23: 30 Insulin Glargine (Lantus) 15 unit DAILY@08 SC Last administered on 07/18/16 08 :20; Admin Dose 15 UNIT; Start 07/14/16 at 08:00 Enoxaparin Sodium (Lovenox) 40 mg DAILY SC Last administered on 07/18/16 08:21 ; Admin Dose 40 MG; Start 07/14/16 at 09:00 Miscellaneous Information 1 ea NOTE XX ; Start 07/13/16 at 23:45 Glucose (Glutose) 15 gm Q15M PRN PO DECREASED GLUCOSE; Start 07/13/16 at 23:45 Glucose (Glutose) 22.5 gm Q15M PRN PO DECREASED GLUCOSE; Start 07/13/16 at 23:45 Dextrose (D50w Syringe) 25 ml Q15M PRN IV DECREASED GLUCOSE; Start 07/13/16 at 23:45 Dextrose (D50w Syringe) 50 ml Q15M PRN IV DECREASED GLUCOSE; Start 07/13/16 at 23:45 Glucagon (Glucagen) 1 mg Q15M PRN IM DECREASED GLUCOSE; Start 07/13/16 at 23:45 Glucose (Glutose) 15 gm Q15M PRN BUCCAL DECREASED GLUCOSE; Start 07/13/16 at 23: 45 Vancomycin HCl (Vanco Iv Per Pharmacy) PER PHARMACY DOSING NOTE XX ; Start at 07:30 Diagnostic Test (Pha) (Accu-Chek) 1 ea 02 XX ; Start 07/15/16 at 02:00 Docusate Sodium 100 mg 100 mg BID PO Last administered on 07/18/16 08:22; Admin Dose 100 MG; Start 07/16/16 at 21:00 Vancomycin HCl/ Sodium Chloride (Vancocin/NS) 250 ml @ 83.333 mls/ hr Q12H IVPB ; Start 07/18/16 at 21:00 VICKY LENNON Jul 18, 2016 16:46
[2016-07-18] MEDS: ERTAPENEM SODIUM 1 GM in SOD CHLORIDE 0.9% 100 ML IVPB SCH (17:36)
[2016-07-18] MEDS: VANCOMYCIN 1.5 GM in SOD CHLORIDE 0.9% 250 ML IVPB SCH (20:14)
[2016-07-18 20:31] VITALS: BP 121/68; RESP 20
[2016-07-19] MEDS: ACCU-CHEK XX SCH (01:32)
[2016-07-19 05:19] LABS: ADD SCAN DIFF NO
[2016-07-19 05:27] LABS: BASOPHILS % 0.5 % (0.0-2.0); EOSINOPHILS # 0.4 10^3/ul (0.0-0.5); HEMATOCRIT 39.8 % (42.0-52.0); HEMOGLOBIN 12.9 g/dl (14.0-18.0); LYMPHOCYTES # 2.7 10^3/ul (0.8-2.9); LYMPHOCYTES % 41.7 % (15.0-51.0); MEAN CORPUSCULAR HEMOGLOBIN 29.2 pg (29.0-33.0); MEAN CORPUSCULAR HGB CONC 32.4 g/dl (32.0-37.0); MEAN PLATELET VOLUME 11.1 fl (7.4-10.4); MONOCYTE # 0.6 10^3/ul (0.3-0.9); MONOCYTES % 8.6 % (0.0-11.0); NEUTROPHIL # 2.8 10^3/ul (1.6-7.5); NEUTROPHILS % 42.7 % (39.0-77.0); PLATELET COUNT 259 10^3/UL (140-415); RED BLOOD COUNT 4.42 10^6/ul (4.70-6.10); RED CELL DISTRIBUTION WIDTH 14.2 % (11.5-14.5); WHITE BLOOD COUNT 6.5 10^3/ul (4.8-10.8)
[2016-07-19 05:57] LABS: CALCIUM 9.5 mg/dl (8.4-10.2); CREATININE 0.74 mg/dl (0.61-1.24); POTASSIUM 3.8 mmol/L (3.5-5.1)
[2016-07-19 07:51] VITALS: BP 114/68; RESP 18
[2016-07-19] MEDS: INSULIN ASPART [NOVOLOG] 3 ML PEN SC SCH ×6 (08:00→17:17)
[2016-07-19] MEDS: INSULIN GLARGINE [LANtus] 3 ML PEN SC SCH (08:16)
[2016-07-19] MEDS: ENOXAPARIN 40 MG/0.4 ML SYG SC SCH (08:16)
[2016-07-19] MEDS: DOCUSATE SODIUM 100 MG CAP PO SCH (08:17)
[2016-07-19] MEDS: VANCOMYCIN 1.5 GM in SOD CHLORIDE 0.9% 250 ML IVPB SCH (08:17)
--- NOTE | 2016-07-19 12:24 | DS ---
DATE OF ADMISSION: 07/13/2016 DATE OF DISCHARGE: 07/19/2016 FINAL DIAGNOSES: 1. Left foot abscess with osteomyelitis. 2. Poorly controlled diabetes mellitus. BRIEF HISTORY: The patient is a 61-year-old gentleman who was seen by Dr. Linares in podiat ry consultation. The patient had a resection of cyst on the left foot back in 2015 while he was in [place]. He subsequently developed swelling of the left foot and pain. The patient underwent an MRI in May 2016 that showed extensive osteomyelitis of the left foot with possible septic arthritis a nd complex fluid compression into the adjacent soft tissue, and patient was sent to [facility] Emergency Room from podiatry office. HOSPITAL COURSE: The patient was started on vancomycin and ertapenem and was evaluated by Dr. Jessica maier in infectious disease. Patient underwent bilateral lower extremity, arterial and venous studies w ith no evidence of occlusion or hemodynamically significant stenosis, and no evidence of deep venous thrombosis involving the left lower extremity. The patient had a PICC line insertion and needed 6- 8 weeks of antibiotics for treatment of osteomyelitis. [facility] also [facility] and continued current wound care. The patient will be discharged to [facility] for further wound management and completion of antibiotics with renal function monitoring. DISPOSITION: The patient will be [place] [facility] [place] CONDITION ON DISCHARGE: Hemodynamically stable. ACTIVITY: As patient tolerates. DIET: 1800 ADA diet. DISCHARGE MEDICATIONS: 1. Accu-Chek q.a.c. and at bedtime. 2. Tylenol p.r.n. for pain and fever. 3. Colace. 4. Ertapenem 1 gram q.24h. for 6 more weeks until 08/29/2016. 5. Hypoglycemia protocol. 6. [place] p.r.n. for pain. 7. NovoLog per mild algorithm sliding scale. 8. NovoLog 5 units subq before meals. 9. Lantus 15 units daily at 8:00 p.m. 10. Vancomycin, pharmacy to dose. The patient needs vancomycin for 6 weeks until 08/29/2016. Interdisciplinary plan of care was established for this patient. Plan of care was discussed with Dr Max Hyde. Dictated By: VICKY LENNON MERCHANDISE APPRAISER for TIFFANY HYDE MD SR/NTS Conf#: [id number] DID#: [id number]
--- NOTE | 2016-07-19 14:06 | CONS ---
Date/Time of Note Date/Time of Note DATE: 07/19/16 TIME: 14:06 Assessment/Plan Assessment/Plan Chief Complaint/Hosp Course SUBJECTIVE: No changes overnight. The patient is alert, looks comfortable. No fevers. ANTIMICROBIALS: 1. Vancomycin. 2. Invanz. PHYSICAL EXAMINATION: GENERAL: Well-developed, middle-aged man, who is in no distress. HEENT: Head atraumatic, normocephalic. Sclerae anicteric. Buccal mucosa pink. NECK: Supple, trachea midline. CHEST: Chest rise is symmetrical. Breath sounds clear. HEART: S1, S2. ABDOMEN: Soft, bowel sounds present. EXTREMITIES: Without cyanosis. Left foot dressing intact. ASSESSMENT: 1. Left foot osteomyelitis. 2. Diabetes. PLAN: The patient remains stable, s/p PICC, continue abs for 6-8 weeks, f/u podiatry rec-s, pending dc [facility] staff Problems: Consultation Date/Type/Reason Admit Date/Time Jul 13, 2016 at 16:56 Type of Consultation: ID Exam/Review of Systems Vital Signs Vitals Vital Signs Date Time Temp Pulse Resp B/P Pulse Ox O2 Delivery O2 Flow Rate FiO2 07/19/16 07:51 97.8 60 18 114/68 96 Intake and Output 07/18/16 07/18/16 07/19/16 15:00 23:00 07:00 Intake Total 250 ml 780 ml 950 ml Output Total 1200 ml 900 ml Balance 250 ml -420 ml 50 ml Results Result Diagram: 07/19/16 0425 07/19/16 0425 Results 24 hrs Laboratory Tests Test 07/18/16 17:35 07/18/16 20:11 07/19/16 04:25 07/19/16 08:05 Bedside Glucose 109 93 113 White Blood Count 6.5 Red Blood Count 4.42 L Hemoglobin 12.9 L Hematocrit 39.8 L Mean Corpuscular Volume 90.0 Mean Corpuscular Hemoglobin 29.2 Mean Corpuscular Hemoglobin Concent 32.4 Red Cell Distribution Width 14.2 Platelet Count 259 Mean Platelet Volume 11.1 H Neutrophils % 42.7 Lymphocytes % 41.7 Monocytes % 8.6 Eosinophils % 6.0 Basophils % 0.5 Nucleated Red Blood Cells % 0.0 Neutrophils # 2.8 Lymphocytes # 2.7 Monocytes # 0.6 Eosinophils # 0.4 Basophils # 0.0 Nucleated Red Blood Cells # 0.0 Sodium Level 143 Potassium Level 3.8 Chloride Level 107 Carbon Dioxide Level 29 Anion Gap 11 Blood Urea Nitrogen 18 Creatinine 0.74 Glucose Level 142 Calcium Level 9.5 Test 07/19/16 12:03 Bedside Glucose 116 Medications Medications Current Medications Ertapenem/Sodium Chloride (Invanz/NS) 100 ml @ 200 mls/hr Q24H IVPB Last administered on 07/18/16 17:36; Admin Dose 200 MLS/HR; Start 07/14/16 at 17:30 Acetaminophen (Tylenol Tab) 650 mg Q4H PRN PO PAIN AND OR ELEVATED TEMP Last administered on 07/18/16 08:22; Admin Dose 650 MG; Start 07/13/16 at 23:30 Acetaminophen/ Hydrocodone Bitart ([place] (5/325)) 1 tab Q4H PRN PO PAIN LEVEL 4 -6 Last administered on 07/17/16 13:49; Admin Dose 1 TAB; Start 07/13/16 at 23: 30 Insulin Glargine (Lantus) 15 unit DAILY@08 SC Last administered on 07/19/16 08 :16; Admin Dose 15 UNIT; Start 07/14/16 at 08:00 Enoxaparin Sodium (Lovenox) 40 mg DAILY SC Last administered on 07/19/16 08:16 ; Admin Dose 40 MG; Start 07/14/16 at 09:00 Miscellaneous Information 1 ea NOTE XX ; Start 07/13/16 at 23:45 Glucose (Glutose) 15 gm Q15M PRN PO DECREASED GLUCOSE; Start 07/13/16 at 23:45 Glucose (Glutose) 22.5 gm Q15M PRN PO DECREASED GLUCOSE; Start 07/13/16 at 23:45 Dextrose (D50w Syringe) 25 ml Q15M PRN IV DECREASED GLUCOSE; Start 07/13/16 at 23:45 Dextrose (D50w Syringe) 50 ml Q15M PRN IV DECREASED GLUCOSE; Start 07/13/16 at 23:45 Glucagon (Glucagen) 1 mg Q15M PRN IM DECREASED GLUCOSE; Start 07/13/16 at 23:45 Glucose (Glutose) 15 gm Q15M PRN BUCCAL DECREASED GLUCOSE; Start 07/13/16 at 23: 45 Vancomycin HCl (Vanco Iv Per Pharmacy) PER PHARMACY DOSING NOTE XX ; Start at 07:30 Diagnostic Test (Pha) (Accu-Chek) 1 XX ; Start 07/15/16 at 02:00 Docusate Sodium 100 mg 100 mg BID PO Last administered on 07/19/16 08:17; Admin Dose 100 MG; Start 07/16/16 at 21:00 Vancomycin HCl/ Sodium Chloride (Vancocin/NS) 250 ml @ 83.333 mls/ hr Q12H IVPB Last administered on 07/19/16 08:17; Admin Dose 83.333 MLS/HR; Start 01/22 at 21:00 BRENT LUCERO NP Jul 19, 2016 14:06
[2016-07-19] MEDS: ERTAPENEM SODIUM 1 GM in SOD CHLORIDE 0.9% 100 ML IVPB SCH (17:05)
== END 2016-07-19 19:14 | DRG 638 ==
LOC: FTE 13:12 → PP2 16:56
PROVIDERS: ADMIT Internal Medicine; ATTEND Internal Medicine
PROC: 02HV33Z Insertion of Infusion Device into Superior Vena Cava, Percutaneous Approach (ICD-10-PCS; principal; 2016-07-17)
DX: E11.69 Type 2 diabetes mellitus with other specified complication (principal); M86.8X7 Other osteomyelitis, ankle and foot; E11.65 Type 2 diabetes mellitus with hyperglycemia; L02.612 Cutaneous abscess of left foot; Z79.84 Long term (current) use of oral hypoglycemic drugs
CPT/HCPCS: 36569; 71010; 76937; 80048; 80053; 80061; 80202; 82962; 83036; 84443; 85025; 85610; 85651; 85730; 86140; 87040; 93922; 93971; 96374; 96375; J1335; J1650; J1815; J2185; J3370; J7050